=== PATIENT | female | born 1965 | race Two or more races ===

== ENCOUNTER 2023-02-21 10:16 | Outpatient (CLI) | payer OTHER | END 2023-02-21 10:34 | disposition home or self-care (01) | LOC: SONOGRAMA 10:16 | DX: M25.511 Pain in right shoulder (principal) ==

== ENCOUNTER 2023-05-22 10:14 | Outpatient (CLI) | payer OTHER ==
[~2023-05-22 10:14] MED LIST: KENALOG-8080 MG/1 ML IJ
== END 2023-05-22 10:30 | disposition home or self-care (01) ==
LOC: MRI 10:14
DX: M54.12 Radiculopathy, cervical region (principal)
CPT/HCPCS: 72141

== ENCOUNTER 2023-12-16 09:50 | Outpatient (CLI) | payer OTHER ==
[~2023-12-16 09:50] MED LIST changes: +GABAPENTIN300 M2 PO; +METHOCARBAMOL500 MG PO; +NABUMETONE750 MG PO; +VOLTAREN ARTHRI20 GM TOP
== END 2023-12-16 09:57 | disposition home or self-care (01) ==
LOC: MAMO-SONO 09:50
DX: Z12.31 Encounter for screening mammogram for malignant neoplasm of breast (principal)